=== PATIENT | female | born 1980 | race Asian ===

== ENCOUNTER 2023-04-16 12:07 | Outpatient (AMB) | payer OTHER, SELFPAY ==
--- NOTE | 2023-04-16 12:33 | MHC.PC.OV ---
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 Accompanied by: Self / Same As Patient Allergies No Known Allergies Allergy (Verified 04/16/23 13:05) Medication List - Last Reconciled 04/16/23 by Sandro Faustin MD calcium carbonate (Calcium) 600 mg PO DAILY Tobacco use date assessed: 04/16/23 Dental Screening Did you have a dental visit in the last 12 months?: No Did you have a dental problem in the last 6 months where you did not have access to dental care?: No Was dental information given to patient?: No HPI Establish Care HPI Details Patient comes in today for her annual physical examination and to reestablish care - she was previously seen back in 2019 but has not been back since States that she currently feels okay but reports experiencing on and off dizziness for a while now Reports experiencing severe dizziness a few months ago - based on her description of her symptoms wherein she states that she had to keep her eyes closed as even the slightest movement triggers severe dizziness, it sounded like she had a bout of vertigo then States that she was seen for this somewhere up in [place] and will bring in a copy of her records for us to go over as soon as she can States that she still has on and off but brief episodes of dizziness that seems to occur more often around noon time - states that these tend to last only for a few seconds and would then pass immediately She denies any headaches Denies any chest pains, no SOB No nausea/vomiting, no abdominal pain No change in bowel habits noted Denies any acute urinary symptoms Relates (+) on and off pain in her right elbow and right shoulder; sometimes also has some numbness in her right hand, especially towards the later afternoon or at night 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 Valdivia for founder exam and pap smear but has not seen him or had her mammogram done since she was last here in 2019 [facility] Medical History (Updated 04/16/23 @ 13:41 by Sandro Faustin MD) No pertinent past medical history Surgical History (Updated 04/16/23 @ 13:41 by Sandro Faustin MD) No pertinent past surgical history Family History (Updated 04/16/23 @ 13:42 by Sandro Faustin MD) Mother Diabetes Hypertension Social History Housing: Apartment Patient Tobacco Use Status: Never used Tobacco e-Cigarette/Vaping Use: Never Used service: No Current occupational status: employed Current occupational exposures/hazards: No Cognitive needs: No Hearing needs: No Vision needs: No Questionnaire PHQ-9 Over the last 2 weeks, how often have you been bothered by any of the following problems? 1. Little interest or pleasure in doing things: not at all 2. Feeling down, depressed, or hopeless: not at all 3. Trouble falling or staying asleep, or sleeping too much: not at all 4. Feeling tired or having little energy: not at all 5. Poor appetite or overeating: not at all 6. Feeling bad about yourself - or that you are a failure or have let yourself or your family down: not at all 7. Trouble concentrating on things, such as reading the newspaper or watching television: not at all 8. Moving or speaking so slowly that other people could have noticed. Or the opposite - being so fidgety or restless that you have been moving around a lot more than usual: not at all 9. Thoughts that you would be better off or of hurting yourself in some way: not at all Total score: 0 Depression Screening Interpretation: Negative Depression Screening Done: Yes 48832 - PHQ-9 Billing: Yes Source: Developed by Drs. Constantino Levine, Juana Fisher, Juwan Chappell and colleagues, with an educational baldo from [employer]. Thrive Questionnaire Date Thrive assessed: 04/16/23 I am a: Patient What is your living situation today?: I have a steady place to live Within the past 12 months, did the food you bought not last and you didn't have the money to get more?: Never true Within the past 12 months, did you worry whether your food would run out before you got money to buy more?: Never true Do you have trouble paying for medicines?: No Do you have trouble getting transportation to medical appointments?: No Do you have trouble paying your heating and electricity bill?: No Do you have trouble taking care of your child, family member or friend?: No Do you have trouble with day-to-day activities such as bathing, preparing meals, shopping, managing finances, etc.?: No Are you currently unemployed and looking for a job?: No Are you interested in more education?: No Please select the resources that you would like help with: None Currently or been in a relationship where the following occur: no concerns reported AUDIT C Alcohol Use Questionnaire (AUDIT-C) 1. How often do you have a drink containing alcohol?: Never 3. How often do you have six or more drinks on one occasion?: Never Total Score: 0 Score Reviewed/Action Taken: Yes NATHAN-7 AMB Questionnaire NATHAN-7 Date NATHAN - 7 assessed: 04/16/23 Feeling nervous, anxious, or on edge: 0 = Not at all Not being able to stop or control worryin = Not at all Worrying too much about different things: 0 = Not at all Trouble relaxin = Not at all Being so restless that it is hard to sit still: 0 = Not at all Becoming easily annoyed or irritable: 0 = Not at all Feeling afraid as if something awful might happen: 0 = Not at all Total NATHAN-7 score (0-4 normal; 5-9 mild; 10-14 moderate; 15-21 severe): 0 Source: Developed by Drs. Constantino Levine, Juana Fisher, Juwan Chappell and colleagues, with an educational baldo from [employer]. Review of Systems Const Denies chills, Denies fatigue, Denies fever(s), Denies headache(s) and Denies malaise Eyes Denies blurry vision, Denies change in vision, Denies irritation and Denies itchy eyes ENT Denies dysphagia, Reports dizziness (on and off - see HPI), Denies otalgia, Denies headache(s), Denies nasal congestion, Denies neck pain, Denies odynophagia, Denies sinus pain and Denies sore throat Card Denies chest pain, Denies rapid heart rate, Denies irregular heart rhythm, Denies palpitations and Denies dyspnea Resp Denies chest congestion, Denies cough, Denies dyspnea and Denies wheezing GI Denies abdominal pain, Denies bloating, Denies constipation, Denies dysphagia, Denies heartburn, Denies diarrhea, Denies nausea, Denies odynophagia and Denies vomiting Denies hematuria, Denies urinary frequency, Denies dysuria, Denies urinary incontinence and Denies urinary urgency Musc Denies back pain, Reports arthralgias (right elbow, right shoulder and occasionally right wrist), Denies joint swelling, Denies muscle weakness, Denies neck pain and Reports numbness (on and off in the right hand, more often in late afternoon or at night) Skin/Breast Denies breast pain, Denies breast mass, Denies change in pigmentation, Denies lesions, Denies rash and Denies unusual bruising Neuro Reports dizziness (on and off - see HPI), Denies headache(s), Reports numbness (on and off in the right hand, more often in late afternoon or at night) and Denies paresthesias Psych Denies anxiety and Denies depression Endo Denies fatigue and Denies palpitations Donte/Lymph Denies easy bruising Aller/Immun Denies itchy eyes and Denies wheezing Physical exam (Primary Care) Vital Signs: Last Vital Signs Pulse 73 04/16/23 12:38 BP 100/80 04/16/23 12:38 Pulse Ox 99 04/16/23 12:38 Oxygen Delivery Method Room Air 04/16/23 12:38 BMI result Body Mass Index 20.5 Tobacco/Smoking Status: Tobacco use Status Tobacco use date assessed 04/16/23 04/16/23 12:47 Patient Tobacco Use Status Never used Tobacco 04/16/23 12:47 e-Cigarette/Vaping Use Never Used 04/16/23 12:47 PHQ-9: PHQ-9 Score PHQ-9: Total score 0 04/16/23 13:10 Depression Screening Interpretation: Negative Thrive Assessment: Date of Thrive Assessment Date Thrive assessed 04/16/23 04/16/23 12:47 Currently or been in a relationship where the following occur: no concerns reported Const General: no acute distress, alert and awake Orientation/consciousness: patient oriented x3 HENMT Head: Yes normocephalic and Yes atraumatic Ears: external ears normal, TM's normal bilaterally and EAC's normal General nose exam: No nasal discharge present Face and sinus: Yes normal facial exam and Yes sinuses nontender Teeth and gingiva: dentition normal Throat: Yes posterior oropharynx normal and Yes tonsils normal (no TP congestion) Eyes Eyelids: Yes eyelids normal Conjunctivae: conjunctivae normal Pupils: Equal, round and reactive pupils present EOM: EOMs intact bilaterally Neck Neck: Yes no lymphadenopathy and Yes supple Thyroid: Thyroid normal Resp Auscultation: clear to auscultation bilaterally, no rales and no wheezes Cardio Rate: regular rate Rhythm: regular rhythm Heart sounds: no murmurs GI Palpation (GI): Soft to palpation, nontender and No hepatosplenomegaly present Auscultation: normal bowel sounds General: Yes no CVA tenderness Back/Spine/Pelvis Back: no CVA tenderness Thoracic/Lumbar Spine: thoracic and lumbar spine normal to inspection Skin Lesions: no lesions Rashes: no rashes Neuro General: patient oriented x3, moves all extremities, no focal motor deficits and CN's II-XI intact bilaterally Cranial nerves: Yes Equal, round and reactive pupils present Cognition (Neuro): normal cognition Gait exam (Neuro): Normal gait present Extrem General: Yes no clubbing, cyanosis or edema Right upper extremity: shoulder/upper arm Details: normal to inspection, elbow/forearm Details: tenderness (mild) Location: of the medial epicondyle; no swelling and wrist Details: tenderness (mild) Location: of the volar wrist Assessment and Plan Assessment & Plan (1) Annual physical exam: Code(s): Z00.00 - Encounter for general adult medical examination without abnormal findings Plan: Check labs (2) Dizziness: Code(s): R42 - Dizziness and giddiness Plan: Unknown etiology at this time - may be due to dehydration (considering where she is working at) or vertigo (more unlikely given the brief nature of her recent symptoms) Will wait and see how her labs come out first (3) Medial epicondylitis of right elbow: Code(s): M77.01 - Medial epicondylitis, right elbow Plan: Mild - likely related to what 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 does at 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) If symptoms progress, consider referring either to physical therapy or orthopedics for further management (4) Numbness and tingling in right hand: Code(s): R20.0 - Anesthesia of skin; R20.2 - Paresthesia of skin Plan: May possibly be due to CTS If symptom progress, will consider imaging studies (x-rays) of the wrist as well as EMG & NCV Can also try wearing a wrist splint but she feels that this will impact her work and wants to hold off on this for now (5) Breast cancer screening by mammogram: Code(s): Z12.31 - Encounter for screening mammogram for malignant neoplasm of breast Plan: Will send for screening (annual) mammogram - has not had one done since 2019 (6) Cervical cancer screening: Code(s): Z12.4 - Encounter for screening for malignant neoplasm of cervix Plan: Will also refer back to Dr. Valdivia for her annual founder exam and pap smear Plan Follow up in 4 months or PRN Orders: Orders Comprehensive [place]. Panel Fast Today R42 - Dizziness and giddiness, Z00.00 - Encounter for general adult medical examination without abnormal findings Vitamin B12 and Folate Today E53.8 - Deficiency of other specified B group vitamins, Z00.00 - Encounter for general adult medical examination without abnormal findings Magnesium Today E83.42 - Hypomagnesemia, Z00.00 - Encounter for general adult medical examination without abnormal findings MM tomosynthesis screening BI Today Z12.31 - Encounter for screening mammogram for malignant neoplasm of breast Complete Blood Count Auto Diff Today R42 - Dizziness and giddiness, Z00.00 - Encounter for general adult medical examination without abnormal findings Lipid Panel Today E78.00 - Pure hypercholesterolemia, unspecified, Z00.00 - Encounter for general adult medical examination without abnormal findings TSH reflex Free T4 Today Z00.00 - Encounter for general adult medical examination without abnormal findings UA CC w/rflx Micro + Cult Today R30.0 - Dysuria, Z00.00 - Encounter for general adult medical examination without abnormal findings Vitamin D 25-OH Total Today E55.9 - Vitamin D deficiency, unspecified, Z00.00 - Encounter for general adult medical examination without abnormal findings Referrals [facility] Referral Z12.4 - Encounter for screening for malignant neoplasm of cervix Coding Level of Care Code New Pt Prev Care 40-64y([id number]) Diagnoses Annual physical exam Z00.00 Dizziness R42 Medial epicondylitis of right elbow M77.01 Numbness and tingling in right hand R20.0; R20.2 Breast cancer screening by mammogram Z12.31 Cervical cancer screening Z12.4
[2023-04-16 12:38] VITALS: BP 100/80; PULSE 73; O2SAT 99; BMI 20.5
== END 2023-04-16 13:21 | disposition home or self-care (01) ==
PROVIDERS: PCP Internal Medicine; Visit Provider Internal Medicine
DX: Z00.00 Encounter for general adult medical examination without abnormal findings (principal); R42 Dizziness and giddiness; M77.01 Medial epicondylitis, right elbow; R20.0 Anesthesia of skin; R20.2 Paresthesia of skin; Z12.31 Encounter for screening mammogram for malignant neoplasm of breast; Z12.4 Encounter for screening for malignant neoplasm of cervix
CPT/HCPCS: 99386

== ENCOUNTER 2023-04-19 08:37 | Outpatient (REF) | payer OTHER, SELFPAY ==
[2023-04-19 08:55] LABS: MANUAL DIFF FLAG NO
[2023-04-19 09:22] LABS: Basophils Absolute Auto 0.1 X10*3/uL (0.0-0.2); Basophils Percent Auto 0.9 % (0-2); Eosinophils Absolute Auto 0.1 X10*3/uL (0.0-0.4); Eosinophils Percent Auto 1.4 % (0-4); Hematocrit 41.1 % (37.0-47.0); Hemoglobin 13.1 g/dl (12.0-16.0); Imm Gran Abs Auto 0.01 X10*3/uL (0.00-0.03); Imm Gran Pct Auto 0.2 % (0.0-0.4); Lymphocytes Absolute Auto 1.4 X10*3/uL (1.2-4.9); Lymphocytes Percent Auto 25.4 % (20-40); Mean Corpuscular HGB Conc 31.9 g/dl (31.0-35.0); Mean Corpuscular Hemoglobin 26.8 pg (27.0-33.0); Mean Platelet Volume 8.9 fL (9.4-12.3); Monocytes Absolute Auto 0.5 X10*3/uL (0.1-1.2); Monocytes Percent Auto 8.8 % (2-11); Neutrophils Absolute Auto 3.5 x10*3/uL (2.0-8.3); Neutrophils Percent Auto 63.3 % (45-73); Platelet Count 358 X10*3/uL (160-400); Red Blood Count 4.89 X10*6/uL (4.20-5.50); Red Cell Distribution Width 12.8 % (11.0-16.0); White Blood Count 5.6 X10*3/uL (4.8-10.8)
[2023-04-19 09:32] LABS: Appearance Urine Clear; Color Urine Yellow; Glucose Urine UA Negative (Negative); Leukocyte Esterase Urine Trace (Negative); Nitrite Urine Negative (Negative); PH 6.5 (5.0-9.0); UMIC TRIGGER UACC YES; Urine Blood Negative (Negative); Urine Ketones Negative (Negative); Urine Protein Negative (Neg-Trace)
[2023-04-19 09:42] LABS: Bacteria Urine Trace (None Seen); Hyaline Casts Urine 0-2 /LPF (0-2); RBC Urine 0-2 /HPF (0-2); WBC Urine 0-5 /HPF (0-5)
[2023-04-19 10:29] LABS: Alanine Aminotransferase 11 U/L (0-31); Albumin Level 4.2 g/dL (3.5-5.0); Alkaline Phosphatase 60 U/L (39-117); Anion Gap 13 (12-20); Aspartate Amino Transferase 17 U/L (5-31); Bilirubin Total 0.5 mg/dL (0.0-1.0); Blood Urea Nitrogen 12 mg/dL (9-16); Calcium 9.2 mg/dL (8.4-10.2); Carbon Dioxide 22 mmol/L (22-29); Chloride 108 mmol/L (96-108); Cholesterol 143 mg/dL (<200); Estimated Glomerular Filt Rate > 60; Glucose Fasting 84 mg/dL (60-99); HDL Cholesterol 46 mg/dL (>40); LDL Cholesterol Calculated 89 mg/dL (<100); Magnesium 2.1 mg/dL (1.6-2.6); Sodium 139 mmol/L (135-145); Total Protein 7.6 g/dL (6.5-8.0); Triglycerides 44 mg/dL (<150)
[2023-04-19 10:40] LABS: TSH reflex Free T4 2.69 uIU/mL (0.32-4.0); Vitamin D 25-OH Total 26.9 ng/mL (>30)
[2023-04-19 11:18] LABS: Vitamin B12 778 pg/mL (200-900)
== END 2023-04-19 08:38 | disposition home or self-care (01) ==
LOC: HO.LAB 08:37
PROVIDERS: PCP Internal Medicine; Visit Provider Internal Medicine
DX: Z00.00 Encounter for general adult medical examination without abnormal findings (principal); R42 Dizziness and giddiness; E53.8 Deficiency of other specified B group vitamins; E78.00 Pure hypercholesterolemia, unspecified; E55.9 Vitamin D deficiency, unspecified
CPT/HCPCS: 36415; 80053; 80061; 81001; 82306; 82607; 82746; 83735; 84443; 85025

== ENCOUNTER 2024-03-24 15:48 | Outpatient (AMB) | payer OTHER, SELFPAY ==
[2024-03-24 15:48] VITALS: BP 100/78; PULSE 67; O2SAT 98; BMI 20.3
--- NOTE | 2024-03-24 15:48 | MHC.PC.OV ---
Vital Signs 03/24/24 15:48 Height 5 ft 5 in Weight 122 lb 2 oz BMI 20.3 BP 100/78 Blood Pressure Location Lt brachial Position Sitting Pulse 67 Pulse Source Pulse Oximeter Pulse Oximetry (%) 98 Oxygen Delivery Method Room Air Intake Visit Reasons: annual exam Accompanied by: Spouse Allergies No Known Allergies Allergy (Verified 03/24/24 16:19) Medication List - Last Reconciled 03/24/24 by Sandro Faustin MD calcium carbonate (Calcium 600) 600 mg PO DAILY Tobacco use date assessed: 03/24/24 Dental Screening Dental Screen Date: 03/24/24 Did you have a dental visit in the last 12 months?: No Did you have a dental problem in the last 6 months where you did not have access to dental care?: No Was dental information given to patient?: No HPI annual exam HPI Details Patient comes in today for her annual physical examination States that she currently feels okay but she would sometimes experience on and off episodes of some chest heaviness and mild SOB and feels that her heart may be beating a little faster than usual during these times States that these do not seem to be associated with or triggered by activity or physical exertion and usually last for only a few minutes before spontaneously subsiding She denies any chest pains, dizziness or lightheadedness when these episodes occur She denies any headaches or dizziness Denies any exertional chest pains No nausea/vomiting, no abdominal pain No change in bowel habits noted She denies any acute urinary symptoms She last had her annual mammogram done here at [facility] in 2019 - mammogram was negative She has not seen a computerized mill mill recorder nor had a pap smear done in years [facility] Medical History (Updated 03/25/24 @ 05:53 by Sandro Faustin MD) Vitamin D deficiency No pertinent past medical history Surgical History No pertinent past surgical history Family History Mother Diabetes Hypertension Social History Housing: Apartment Patient Tobacco Use Status: Never used Tobacco e-Cigarette/Vaping Use: Never Used service: No Current occupational status: employed Current occupational exposures/hazards: No Cognitive needs: No Hearing needs: No Vision needs: No Questionnaire PHQ-9 Over the last 2 weeks, how often have you been bothered by any of the following problems? 1. Little interest or pleasure in doing things: not at all 2. Feeling down, depressed, or hopeless: not at all 3. Trouble falling or staying asleep, or sleeping too much: not at all 4. Feeling tired or having little energy: not at all 5. Poor appetite or overeating: not at all 6. Feeling bad about yourself - or that you are a failure or have let yourself or your family down: not at all 7. Trouble concentrating on things, such as reading the newspaper or watching television: not at all 8. Moving or speaking so slowly that other people could have noticed. Or the opposite - being so fidgety or restless that you have been moving around a lot more than usual: not at all 9. Thoughts that you would be better off or of hurting yourself in some way: not at all Total score: 0 Depression Screening Interpretation: Negative Depression Screening Done: Yes 79417 - PHQ-9 Billing: Yes Source: Developed by Drs. Constantino Levine, Juana Fisher, Juwan Chappell and colleagues, with an educational baldo from [employer]). Thrive Questionnaire Date Thrive assessed: 03/24/24 I am a: Patient What is your living situation today?: I have a steady place to live Within the past 12 months, did the food you bought not last and you didn't have the money to get more?: Never true Within the past 12 months, did you worry whether your food would run out before you got money to buy more?: Never true Do you have trouble paying for medicines?: No Do you have trouble getting transportation to medical appointments?: No Do you have trouble paying your heating and electricity bill?: No Do you have trouble taking care of your child, family member or friend?: No Do you have trouble with day-to-day activities such as bathing, preparing meals, shopping, managing finances, etc.?: No Are you currently unemployed and looking for a job?: No Are you interested in more education?: No Please select the resources that you would like help with: None Currently or been in a relationship where the following occur: No concerns reported THRIVE Score: 0 AUDIT C Alcohol Use Questionnaire (AUDIT-C) 1. How often do you have a drink containing alcohol?: Never 3. How often do you have six or more drinks on one occasion?: Never Total Score: 0 Score Reviewed/Action Taken: Yes NATHAN-7 AMB Questionnaire NATHAN-7 Date NATHAN - 7 assessed: 03/24/24 Feeling nervous, anxious, or on edge: 0 = Not at all Not being able to stop or control worryin = Not at all Worrying too much about different things: 0 = Not at all Trouble relaxin = Not at all Being so restless that it is hard to sit still: 0 = Not at all Becoming easily annoyed or irritable: 0 = Not at all Feeling afraid as if something awful might happen: 0 = Not at all Total NATHAN-7 score (0-4 normal; 5-9 mild; 10-14 moderate; 15-21 severe): 0 Source: Developed by Drs. Constantino Levine, Juana Fisher, Juwan Chappell and colleagues, with an educational baldo from [employer] ([employer]). Review of Systems Const Denies chills, Denies fatigue, Denies fever(s), Denies headache(s) and Denies malaise Eyes Denies blurry vision, Denies change in vision, Denies irritation and Denies itchy eyes ENT Denies dysphagia, Denies dizziness, Denies otalgia, Denies headache(s), Denies nasal congestion, Denies neck pain, Denies odynophagia, Denies sinus pain and Denies sore throat Card Denies chest pain (but reports (+) occasional chest discomfort - see HPI), Denies chest pain with activity, Reports rapid heart rate (at times - see HPI), Denies irregular heart rhythm, Denies lightheadedness, Denies palpitations, Reports dyspnea (at times - see HPI) and Denies dyspnea on exertion Resp Denies chest congestion, Denies cough, Reports dyspnea (at times - see HPI), Denies dyspnea on exertion and Denies wheezing GI Denies abdominal pain, Denies bloating, Denies constipation, Denies dysphagia, Denies heartburn, Denies diarrhea, Denies nausea, Denies odynophagia and Denies vomiting Denies hematuria, Denies urinary frequency, Denies dysuria, Denies urinary incontinence and Denies urinary urgency Musc Denies back pain, Denies arthralgias, Denies joint swelling, Denies muscle weakness and Denies neck pain Skin/Breast Denies breast pain, Denies breast mass, Denies change in pigmentation, Denies lesions, Denies rash and Denies unusual bruising Neuro Denies dizziness, Denies headache(s) and Denies paresthesias Psych Denies anxiety and Denies depression Endo Denies fatigue and Denies palpitations Donte/Lymph Denies easy bruising Aller/Immun Denies itchy eyes and Denies wheezing Physical exam (Primary Care) Vital Signs: Last Vital Signs Pulse 67 03/24/24 15:48 BP 100/78 03/24/24 15:48 Pulse Ox 98 03/24/24 15:48 Oxygen Delivery Method Room Air 03/24/24 15:48 BMI result Body Mass Index 20.3 Tobacco/Smoking Status: Tobacco use Status Tobacco use date assessed 03/24/24 03/24/24 15:51 Patient Tobacco Use Status Never used Tobacco 03/24/24 15:51 e-Cigarette/Vaping Use Never Used 03/24/24 15:51 PHQ-9: PHQ-9 Score PHQ-9: Total score 0 03/24/24 16:42 Depression Screening Interpretation: Negative Thrive Assessment: Date of Thrive Assessment Date Thrive assessed 03/24/24 03/24/24 15:51 Currently or been in a relationship where the following occur: No concerns reported Const General: no acute distress, alert and awake Orientation/consciousness: patient oriented x3 HENMT Head: Yes normocephalic and Yes atraumatic Ears: external ears normal, TM's normal bilaterally and EAC's normal General nose exam: No nasal discharge present Face and sinus: Yes normal facial exam and Yes sinuses nontender Teeth and gingiva: dentition normal Throat: Yes posterior oropharynx normal and Yes tonsils normal (no TP congestion) Eyes Eyelids: Yes eyelids normal Conjunctivae: conjunctivae normal Pupils: Equal, round and reactive pupils present EOM: EOMs intact bilaterally Neck Neck: Yes no lymphadenopathy and Yes supple Thyroid: Thyroid normal Resp Auscultation: clear to auscultation bilaterally, no rales and no wheezes Cardio Rate: regular rate Rhythm: regular rhythm Heart sounds: no murmurs GI Palpation (GI): Soft to palpation, nontender and No hepatosplenomegaly present Auscultation: normal bowel sounds General: Yes no CVA tenderness Back/Spine/Pelvis Back: no CVA tenderness Thoracic/Lumbar Spine: thoracic and lumbar spine normal to inspection Skin Lesions: no lesions Rashes: no rashes Neuro General: patient oriented x3, moves all extremities, no focal motor deficits and CN's II-XI intact bilaterally Cranial nerves: Yes Equal, round and reactive pupils present Cognition (Neuro): normal cognition Gait exam (Neuro): Normal gait present Extrem General: Yes no clubbing, cyanosis or edema Assessment and Plan Assessment & Plan (1) Annual physical exam: Code(s): Z00.00 - Encounter for general adult medical examination without abnormal findings Plan: Check labs Patient also requested to be checked for diabetes as she has a strong family history for this (2) Dyspnea: Code(s): R06.00 - Dyspnea, unspecified Qualifiers: Dyspnea type: unspecified Qualified Code(s): R06.00 - Dyspnea, unspecified Plan: Patient reports experiencing on and off episodes of some chest heaviness and mild SOB and feels that her heart may be beating a little faster than usual during these times Will send her for chest x-rays and 12-lead EKG for further evaluation She may also need an echocardiogram at some point, especially if her chest x-rays and EKG do not help to explain away her symptoms (3) Vitamin D deficiency: Code(s): E55.9 - Vitamin D deficiency, unspecified Plan: She is advised that her Vitamin D level was low when it was rechecked last year Will start her on Vitamin D3 2000 units QD (4) Breast cancer screening by mammogram: Code(s): Z12.31 - Encounter for screening mammogram for malignant neoplasm of breast Plan: Will send her for annual mammography - last done in 2019 (5) Cervical cancer screening: Code(s): Z12.4 - Encounter for screening for malignant neoplasm of cervix Plan: Will refer her to the [facility] here at [facility] for her annual pap smear and gynecology exam (6) Colon cancer screening: Code(s): Z12.11 - Encounter for screening for malignant neoplasm of colon Plan: Will refer her for screening colonoscopy - this will be her index screen Plan To return in 1 year for her next annual physical examination, unless her tests reveal any abnormal results, especially those to do with her cardiac symptoms Orders: Orders Comprehensive [place]. Panel Fast 03/24/24 E78.00 - Pure hypercholesterolemia, unspecified, Z00.00 - Encounter for general adult medical examination without abnormal findings TSH reflex Free T4 03/24/24 E78.00 - Pure hypercholesterolemia, unspecified, Z00.00 - Encounter for general adult medical examination without abnormal findings UA CC w/rflx Micro + Cult 03/24/24 R30.0 - Dysuria, Z00.00 - Encounter for general adult medical examination without abnormal findings ECG 12 lead EKG 03/24/24 I49.9 - Cardiac arrhythmia, unspecified MM tomosynthesis screening BI 03/24/24 Z12.31 - Encounter for screening mammogram for malignant neoplasm of breast Complete Blood Count Auto Diff 03/24/24 D64.9 - Anemia, unspecified, Z00.00 - Encounter for general adult medical examination without abnormal findings Lipid Panel 03/24/24 E78.00 - Pure hypercholesterolemia, unspecified, Z00.00 - Encounter for general adult medical examination without abnormal findings Vitamin D 25-OH Total 03/24/24 E55.9 - Vitamin D deficiency, unspecified, Z00.00 - Encounter for general adult medical examination without abnormal findings Hemoglobin A1c 03/24/24 E11.9 - Type 2 diabetes mellitus without complications, Z00.00 - Encounter for general adult medical examination without abnormal findings XR chest 2V 03/24/24 R06.00 - Dyspnea, unspecified Referrals Gastroenterology Referral Z12.11 - Encounter for screening for malignant neoplasm of colon INPATIENT NURSING AIDE Referral Z12.4 - Encounter for screening for malignant neoplasm of cervix Medications: New cholecalciferol (vitamin D3) 50 mcg PO DAILY 90 days 90 caps 3RF E55.9 - Vitamin D deficiency, unspecified Coding Level of Care Code Est Pt Prev Care 40-64y(74322) Diagnoses Annual physical exam Z00. Dyspnea, unspecified type R06.00 Dyspnea type: unspecified Vitamin D deficiency E55.9 Breast cancer screening by mammogram Z07.07 Cervical cancer screening Z12.4 Colon cancer screening Z12.11
== END 2024-03-24 16:21 | disposition home or self-care (01) ==
LOC: HO.HMCH 15:48
PROVIDERS: PCP Internal Medicine; Visit Provider Internal Medicine
DX: Z00.00 Encounter for general adult medical examination without abnormal findings (principal); R06.00 Dyspnea, unspecified; E55.9 Vitamin D deficiency, unspecified; Z12.31 Encounter for screening mammogram for malignant neoplasm of breast; Z12.4 Encounter for screening for malignant neoplasm of cervix; Z12.11 Encounter for screening for malignant neoplasm of colon

== ENCOUNTER → 2024-03-24 15:48 | Outpatient (BNVA) | payer OTHER, SELFPAY | LOC: CF 03-25 07:49 | PROVIDERS: PCP Internal Medicine; Visit Provider Internal Medicine | DX: Z00.00 Encounter for general adult medical examination without abnormal findings (principal); R06.00 Dyspnea, unspecified; E55.9 Vitamin D deficiency, unspecified | CPT/HCPCS: 99396 ==

== ENCOUNTER 2024-03-25 07:50 | Outpatient (REF) | payer OTHER, SELFPAY ==
--- NOTE | ~2024-03-25 | XR_ITS ---
EXAMINATION: XR CHEST CLINICAL INFORMATION: R06.00 - Dyspnea, unspecified COMPARISON: None available. TECHNIQUE: 2 views of the chest were obtained. FINDINGS: The cardiac, hilar, and mediastinal contours are normal. Lungs appear clear bilaterally. There are no effusions or pneumothoraces. There is no osseous abnormality. No soft tissue abnormality. XR/XR chest 2V IMPRESSION: Normal chest. Electronically signed by: Blake Rodriguez MD 06/03/2024 02:05 PM [facility]ANT[facility]
--- NOTE | 2024-03-25 08:08 | ECG_ITS ---
Test Reason : Cardiac Arrythmia I49.9 Blood Pressure : / mmHG Vent. Rate : 052 BPM Atrial Rate : 052 BPM P-R Int : 186 ms QRS Dur : 074 ms QT Int : 438 ms P-R-T Axes : 068 048 033 degrees QTc Int : 407 ms Sinus bradycardia Otherwise normal ECG No previous ECGs available Referred By: Sandro Faustin Electronically Signed By:JINA DICKSON
[2024-03-25 08:30] LABS: Basophils Percent Auto 0.7 % (0-2); Eosinophils Absolute Auto 0.1 X10*3/uL (0.0-0.4); Hematocrit 42.6 % (37.0-47.0); Hemoglobin 13.8 g/dl (12.0-16.0); Imm Gran Abs Auto 0.02 X10*3/uL (0.00-0.03); Imm Gran Pct Auto 0.5 % (0.0-0.4); Lymphocytes Absolute Auto 1.3 X10*3/uL (1.2-4.9); Lymphocytes Percent Auto 31.1 % (20-40); MANUAL DIFF FLAG SCAN; Mean Corpuscular HGB Conc 32.4 g/dl (31.0-35.0); Mean Corpuscular Volume 86.4 fL (80.0-98.0); Monocytes Absolute Auto 0.3 X10*3/uL (0.1-1.2); Monocytes Percent Auto 6.4 % (2-11); Neutrophils Absolute Auto 2.4 x10*3/uL (2.0-8.3); Neutrophils Percent Auto 59.3 % (45-73); PLT CLUMP 1; Red Blood Count 4.93 X10*6/uL (4.20-5.50); Red Cell Distribution Width 12.8 % (11.0-16.0); SCAN SMEAR FLAG 1
[2024-03-25 08:34] LABS: Estimated Average Glucose 97 mg/dL
[2024-03-25 09:06] LABS: Alanine Aminotransferase 16 U/L (0-31); Albumin Level 4.2 g/dL (3.5-5.0); Alkaline Phosphatase 64 U/L (39-117); Anion Gap 11 (12-20); Aspartate Amino Transferase 19 U/L (5-31); Bilirubin Total 0.3 mg/dL (0.0-1.0); Blood Urea Nitrogen 16 mg/dL (9-16); Calcium 8.9 mg/dL (8.4-10.2); Carbon Dioxide 24 mmol/L (22-29); Chloride 110 mmol/L (96-108); Cholesterol 140 mg/dL (<200); Estimated Glomerular Filt Rate > 60; Glucose Fasting 92 mg/dL (60-99); HDL Cholesterol 42 mg/dL (>40); LDL Cholesterol Calculated 86 mg/dL (<100); Potassium 4.6 mmol/L (3.3-5.1); Sodium 140 mmol/L (135-145); Total Protein 7.9 g/dL (6.5-8.0); Triglycerides 64 mg/dL (<150); White Blood Count 4.1 X10*3/uL (4.8-10.8)
[2024-03-25 09:07] LABS: Mean Platelet Volume 10.8 fL (9.4-12.3); Platelet Count 254 X10*3/uL (160-400); SLIDE REVIEW VERIFIED
[2024-03-25 09:28] LABS: Vitamin D 25-OH Total 30.1 ng/mL (>30)
[2024-03-25 09:51] LABS: Appearance Urine Clear; Color Urine Yellow; Glucose Urine UA Negative (Negative); Leukocyte Esterase Urine Trace (Negative); Nitrite Urine Negative (Negative); PH 6.5 (5.0-9.0); UMIC TRIGGER UACC YES; Urine Blood Large (3+) (Negative); Urine Ketones Negative (Negative); Urine Protein Negative (Neg-Trace)
[2024-03-25 09:56] LABS: Bacteria Urine None Seen (None Seen); Hyaline Casts Urine 0-2 /LPF (0-2); WBC Urine 0-5 /HPF (0-5)
== END 2024-03-25 07:51 | disposition home or self-care (01) ==
LOC: HO.XRAY 07:50
PROVIDERS: PCP Internal Medicine; Visit Provider Internal Medicine
DX: Z00.00 Encounter for general adult medical examination without abnormal findings (principal); E78.00 Pure hypercholesterolemia, unspecified; D64.9 Anemia, unspecified; E55.9 Vitamin D deficiency, unspecified; E11.9 Type 2 diabetes mellitus without complications; I49.9 Cardiac arrhythmia, unspecified; R06.00 Dyspnea, unspecified; R30.0 Dysuria
CPT/HCPCS: 36415; 71046; 80053; 80061; 81001; 82306; 83036; 84443; 85025; 93005

== ENCOUNTER → 2024-03-25 08:20 | Outpatient (BNV) | payer OTHER, SELFPAY | PROVIDERS: PCP Internal Medicine; Visit Provider Radiology Diagnostic Radiology | DX: R06.00 Dyspnea, unspecified (principal) | CPT/HCPCS: 71046 ==

== ENCOUNTER 2024-05-12 11:31 | Outpatient (REF) | payer OTHER, SELFPAY ==
--- NOTE | ~2024-05-12 | MM_ITS ---
EXAMINATION: MM SCREENING DIGITAL BREAST TOMOSYNTHESIS, BILATERAL CLINICAL INFORMATION: Screening. Asymptomatic. COMPARISON: Mammography: Comparison is made with available priors TECHNIQUE: Digital breast mammography with tomosynthesis is performed in both the craniocaudal and mediolateral oblique views along with computer-aided detection (CAD). FINDINGS: The breasts are extremely dense, which lowers the sensitivity of mammography (ACR BI-RADS breast composition Category d). There are no significant masses, abnormal calcifications, or other abnormalities. MM/MM tomosynthesis screening BI IMPRESSION: No mammographic evidence of malignancy. ASSESSMENT: BI-RADS BI-RADS 1 - Negative RECOMMENDATION: Routine annual mammography screening. 1 year F/U This examination should not preclude the clinical evaluation of a suspicious palpable abnormality. This patient's information was entered into a reminder system with a target due date for their next mammogram. Electronically signed by: Liana Pearce DO 05/20/2024 01:16 PM [facility]
== END 2024-05-12 11:32 | disposition home or self-care (01) ==
LOC: HO.MAMMO 11:31
PROVIDERS: PCP Internal Medicine; Visit Provider Internal Medicine
DX: Z12.31 Encounter for screening mammogram for malignant neoplasm of breast (principal)
CPT/HCPCS: 77063; 77067

== ENCOUNTER → 2024-05-12 12:15 | Outpatient (BNV) | payer OTHER, SELFPAY | PROVIDERS: PCP Internal Medicine; Visit Provider Internal Medicine | DX: Z12.31 Encounter for screening mammogram for malignant neoplasm of breast (principal) | CPT/HCPCS: 77063; 77067 ==

== ENCOUNTER 2025-01-14 08:04 | Outpatient (AMB) | payer OTHER, SELFPAY ==
[2025-01-14 08:07] VITALS: BP 116/84; PULSE 65; TEMP 36.7; O2SAT 98; BMI 20.8
--- NOTE | 2025-01-14 08:07 | AM.OFFWIN_ITS ---
Intake Vital Signs 01/14/25 08:07 Height 5 ft 5 in Weight 125 lb BMI 20.8 BP 116/84 Blood Pressure Location Lt brachial Position Sitting Pulse 65 Pulse Source Pulse Oximeter Temp 98.0 F Temp Source Oral Pulse Oximetry (%) 98 Oxygen Delivery Method Room Air Intake Visit Reasons: EP Nervous, stomach ache Intake Note: presents with stomach pain, diarrhea for about a week. Also c/o chest tightness and cough with deep breath for years, denies any night sweats Patient Tobacco Use Status: Former Tobacco user Allergies No Known Allergies Allergy (Verified 01/14/25 08:11) Do you need a note to return to daycare/school/sports/work: No HPI HPI Comments History of Present Illness Details 44 y/o Female patient who presents to [facility] walk [facility] clinic with c/o Dry cough and chest tightness. Pt reports that symptoms have been on/off for few years now. Reports occasional SOB but no wheezing. Denies Fevers or Chills. Pt also c/o Generalized Abdominal pain on/off for 2 days now, Pain associated with Diarrhea. Denies Nausea or vomiting. Pain is mostly located at Right Lower Abdominal Quadrant. Denies Blood in Stool. She does have a GI appointment for Colonoscopy in 01/19. She is sexually active with - Had B/L Tubal Ligation. Patient has not used any OTC remedies for her symptoms. Patient was accompanied by a Family member who assisted with Language Translation today - declined Video/Phone supervisor opening and picking. [facility] Medical History (Updated 01/14/25 @ 09:04 by Judy Rivera NP) Abdominal pain, right lower quadrant Cough Vitamin D deficiency No pertinent past medical history Surgical History No pertinent past surgical history Family History Mother Diabetes Hypertension Social History Housing: Apartment Patient Tobacco Use Status: Former Tobacco user e-Cigarette/Vaping Use: Never Used service: No Current occupational status: employed Current occupational exposures/hazards: No Cognitive needs: No Hearing needs: No Vision needs: No Review of Systems Const All systems reviewed & are unremarkable except as noted in HPI and below Physical Exam Vital Signs: Last Vital Signs Temp 98.0 F 01/14/25 08:07 Pulse 65 01/14/25 08:07 BP 116/84 01/14/25 08:07 Pulse Ox 98 01/14/25 08:07 Oxygen Delivery Method Room Air 01/14/25 08:07 BMI result Body Mass Index 20.8 Const General: no acute distress Nutritional Appearance: well nourished Orientation/consciousness: patient oriented x3 HEENT Head: Yes normocephalic Ears: external ears normal and TM abnormal with fluid behind the TM bilateral General nose exam: Abnormal mucous membranes and turbinates present erythematous Face and sinus: Yes sinuses nontender Mouth: moist mucous membranes Throat: Yes uvula midline Resp Effort & Inspection: normal respiratory effort Auscultation: clear to auscultation bilaterally, no crackles, no rales, no rhonchi and no wheezes Cardio Heart sounds: S1 normal heart sound present and S2 normal heart sound present Neuro General: patient oriented x3, gait normal and moves all extremities Psych Speech and movement: Normal speech and movement present Assessment & Plan Assessment & Plan (1) Cough: Code(s): R05.9 - Cough, unspecified Qualifiers: Cough type: chronic Qualified Code(s): R05.3 - Chronic cough Plan: DDx's: Cough vs URI vs Allergic rhinitis. Will Treat with Cough medicine plus Zrytec. (2) Abdominal pain, right lower quadrant: Code(s): R10.31 - Right lower quadrant pain Plan: DDx's: GERD vs Gastritis vs Diarrhea vs Ovarian cyst/torsion vs BV Advised to f/u with trim sawyer for Pelvic U/S due to the location of pain. She does have an appointment with GI for Colonoscopy 01/19 Lifestyle changes; Avoid Oily and spicy foods. Hydrate well Will treat the diarrhea. Medications: New loperamide (Imodium A-D) administer after each loose stool until symptoms controlled; do not exceed 8 mg per 24 hrs 2 mg PO Q4H PRN 20 caps 0RF loose stool R10.31 - Right lower quadrant pain cetirizine (Zyrtec) 10 mg PO DAILY 20 tabs 0RF R05.3 - Chronic cough benzonatate 200 mg (2 x 100 mg) PO BID 60 caps 0RF R05.3 - Chronic cough Coding Level of Care Code Est Pt Level 4 (03659) Diagnoses Chronic cough R05.3 Cough type: chronic Abdominal pain, right lower quadrant R10.31 Time Spent (min) 20
== END 2025-01-14 09:24 | disposition home or self-care (01) ==
PROVIDERS: PCP Internal Medicine; Visit Provider Nurse Practitioner Family
DX: R05.3 Chronic cough (principal); R10.31 Right lower quadrant pain

== ENCOUNTER → 2025-01-14 08:04 | Outpatient (BNVA) | payer OTHER, SELFPAY | PROVIDERS: PCP Internal Medicine; Visit Provider Nurse Practitioner Family | DX: R05.3 Chronic cough (principal); R10.31 Right lower quadrant pain | CPT/HCPCS: 99212 ==

== ENCOUNTER 2025-01-19 12:43 | Outpatient (AMB) | payer OTHER, SELFPAY ==
--- NOTE | 2025-01-19 12:58 | MHC.OFFVIS ---
Vital Signs 01/19/25 12:59 Height 5 ft 5 in Weight 125 lb BMI 20.8 BP 118/70 Blood Pressure Location Lt brachial Position Sitting Pulse 66 Pulse Oximetry (%) 99 Oxygen Delivery Method Room Air Intake Visit Reasons: Colonoscopy Screening Intake Note: Patient new consult for pre Colonoscopy screening. Patient cc: Geographic Information Systems Engineer Required: Yes Geographic Information Systems Engineer Name: Curly [id number] Allergies No Known Allergies Allergy (Verified 01/19/25 12:57) HPI HPI Colonoscopy Screening: Details: 44 year old? female with past medical history of cardiac arrhythmia and no other past medical history is here today for pre colonoscopy screening.? Patient was sent to us by her PCP.? This is her first colonoscopy screening.? Patient denies any gastrointestinal symptoms in the past or at present.? Denies any personal or family history of gastrointestinal disease, colon polyps, or CRC.? Denies history of difficulty with sedation or anesthesia in the past.? Negative for history of sleep apnea.? Denies any history of cardiac, renal, pulmonary, or hepatic disease.?? No history of infectious? diseases like hepatitis A, B, C, HIV or tuberculosis.? Patient is not on any anticoagulation. Long discussion with patient and patient would like to do Cologuard instead going for colonoscopy [facility] Medical History (Updated 01/14/25 @ 09:04 by Judy Rivera NP) Abdominal pain, right lower quadrant Cough Vitamin D deficiency No pertinent past medical history Surgical History No pertinent past surgical history Family History Mother Diabetes Hypertension Social History Housing: Apartment Patient Tobacco Use Status: Former Tobacco user e-Cigarette/Vaping Use: Never Used service: No Current occupational status: employed Current occupational exposures/hazards: No Cognitive needs: No Hearing needs: No Vision needs: No Review of Systems Const Denies weight gain and Denies weight loss ENT Reports no additional complaints, Denies dysphagia and Denies odynophagia Card Reports no additional complaints Resp Reports no additional complaints GI Denies abdominal pain, Denies belching, Denies melena, Denies bloating, Denies change in bowel habits, Denies dysphagia, Denies excessive flatus, Denies dyspepsia, Denies heartburn, Denies diarrhea, Denies loose stools, Denies nausea, Denies odynophagia and Denies vomiting Musc Reports no additional complaints Neuro Reports no additional complaints Psych Reports no additional complaints Endo Reports no additional complaints Physical Exam Vital Signs: Last Vital Signs Pulse 66 01/19/25 12:59 BP 118/70 01/19/25 12:59 Pulse Ox 99 01/19/25 12:59 Oxygen Delivery Method Room Air 01/19/25 12:59 BMI result Body Mass Index 20.8 Const General: healthy appearing, no acute distress and well developed Nutritional Appearance: well nourished Orientation/consciousness: patient oriented x3 Resp Effort & Inspection: normal respiratory effort, able to speak in complete sentences, no tracheal deviation and symmetric chest movement Auscultation: clear to auscultation bilaterally Cardio Rate: regular rate GI Inspection: Yes normal to inspection and No distended Palpation (GI): Soft to palpation, not firm, nontender and No hepatosplenomegaly present Auscultation: normal bowel sounds General: Yes no CVA tenderness Back/Spine/Pelvis Back: no CVA tenderness Skin General skin exam: elasticity normal, turgor normal and dry skin Neuro General: patient oriented x3 Psych Appearance: grossly normal Mental Status: mental status grossly normal Assessment & Plan Assessment & Plan (1) Colon cancer screening: Code(s): Z12.11 - Encounter for screening for malignant neoplasm of colon Category: Medical Plan Patient would like to do Cologuard 1st. Discussed with patient that if she will have positive Cologuard she will need to have a colonoscopy. Patient will follow-up with us as needed. Currently she is not experiencing any GI concerning symptoms. Patient is agreeable to current plan of care and verbalizes understanding of instructions. She was given the opportunity to ask questions and all questions answered. Thank you for allowing me to participate in her care Orders: Orders AMB Cologuard Today Z12.11 - Encounter for screening for malignant neoplasm of colon Coding Level of Care Code New Pt Level 3 (68941) Diagnoses Colon cancer screening Z12.11 Time Spent (min) 40 Comment 30 minutes spent with patient and additional 10 minutes spent reviewing her records
[2025-01-19 12:59] VITALS: BP 118/70; PULSE 66; O2SAT 99; BMI 20.8
--- OUTSIDE RECORDS SUMMARY | 2025-01-19 13:56 | XMS_ITS | Clinical Summary ---
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 Name Role Phone Unavailable Primary Care Provider Unavailabl e Allergies No known active allergies Medications No known medications Active Problems No known active problems Encounters Date Type Department Care Team Description 01/12/2025 10:30 AM EDT Office Visit [facility] [address] [place] [address] Geoff Rodarte DMD 12/11/2024 9:00 AM EDT Office Visit [facility] [address] [place] [address] Caro Carias Dental caries (Primary Dx); Gingivitis; Gingival bleeding; Impacted third molar tooth from Last 3 Months Social History Tobacco Use Types Packs/Day Years Used Date Smoking Tobacco: Never Smokeless Tobacco: Never Tobacco Cessation:Counseling Given: Not Answered Comments Unknown Sex and Gender Information Value Date Recorded Sex Assigned at Female 02/10/2024 2:19 PM EDT Legal Sex Female 10:29 AM EST Gender Identity Female 02/10/2024 2:19 PM EDT Sexual Orientation Straight 02/10/2024 2: 19 PM EDT Last Filed Vital Signs Vital Sign Reading Time Taken Comments Blood Pressure 122/80 01/12/2025 10:39 AM EDT Pulse - - Temperature - - Respiratory Rate - - Oxygen Saturation - - Inhaled Oxygen Concentration - - Weight - - Height - - Body Mass Index - - Plan of Treatment Health Maintenance Due Date Last Done Comments CT Colonography 1978 Colonoscopy 1978 Colorectal Cancer Screening 1978 Depression Screening 1978 FIT DNA/Cologuard 1978 FIT 1978 FOBT 1978 HIV Screening 1978 SDOH Screening 1978 Sigmoidoscopy 1978 Disability Screening 1978 Alcohol/Substance Use Screening 1990 Family Planning (PISQ) 1993 Hepatitis C Screening 1996 DTaP/Tdap/Td Vaccines (1 - Tdap) 1997 Hepatitis B Vaccines (1 of 3 - 19+ 3-dose series) 1997 Pap Smear 1999 Cervical Cancer Screening 2008 HPV/Cotest 2008 Mammogram 2018 COVID-19 Vaccine (4 - 2023-2 5 season) 2024 10/29/2021, 12/09/2020, 11/18/2020 Influenza Vaccine (#1) 2025 Dental X-Ray: Bitewings 05/20/2025 05/19/20, 12/24/2023 Dental Oral Exam 06/13/2025 12/11/2024 Dental Prophylaxis 06/13/2025 12/11/2024, 05/19/2024 Tobacco Screening 01/12/2026 01/12/2025 Dental X-Ray: Full Mouth 05/20/2027 05/19/2024 Zoster Vaccines (1 of 2) 2028 RSV Patients and Patients Aged 60 years or older (1 - 1-dose 75+ series) 2053 HIB Vaccines Aged Out No longer eligi ble based on patient's age to complete this topic HPV Vaccines Aged Out No longer eligi ble based on patient's age to complete this topic Hepatitis A Vaccines Aged Out No long er eligible based on patient's age to complete this topic IPV Vaccines Aged Out No longer eligi ble based on patient's age to complete this topic Meningococcal B Vaccine Aged Out No l onger eligible based on patient's age to complete this topic Meningococcal Vaccine Aged Out No valentino terrance eligible based on patient's age to complete this topic Pneumococcal Vaccine: Pediatrics (0 to 5 Years) and At-Risk Patients (6 to 49) Years Aged Out No longer eligible b ased on patient's age to complete this topic RSV under 20 months Aged Out No longe r eligible based on patient's age to complete this topic Rotavirus Vaccines Aged Out No longer eligible based on patient's age to complete this topic Procedures Procedure Name Priority Date/Time Associated Diagnosis Comments CASE PRESENTATION, DETAILED AND EXTENSIVE TREATMENT PLANNING Routine 01/12/2025 10:30 AM EDT 12 DO AMALGAM - 2 SURF, PRIMARY OR PERMANENT Routine 01/12/2025 10:30 AM EDT PERIODIC ORAL EVALUATION - ESTABLISHED PATIENT Routine 12/11/2024 9:00 AM EDT CASE PRESENTATION, DETAILED AND EXTENSIVE TREATMENT PLANNING Routine 12/11/2024 9:00 AM EDT Dental caries Gingivitis Gingival bleeding ORAL HYGIENE INSTRUCTIONS Routine 12/11/2024 9:00 AM EDT Dental caries Gingivitis Gingival bleeding PROPHYLAXIS - ADULT Routine 12/11/2024 9 :00 AM EDT Gingivitis Gingival bleeding 28 EXTRACTION Routine 12/11/2024 12:00 AM EDT INTRAORAL - COMPLETE SERIES OF RADIOGRAPHIC IMAGES Routine 05/19/2024 10:00 AM EST from Last 3 Months or Most Recently Relevant to Health Maintenance Insurance [facility] MEDICAID LIMITED ADULT DENTAL - HSN FULL (MEDICAID)
== END 2025-01-19 16:38 | disposition home or self-care (01) ==
LOC: HO.HGI 12:44
PROVIDERS: PCP Internal Medicine; Visit Provider Nurse Practitioner Family
DX: Z01.818 Encounter for other preprocedural examination (principal); Z12.11 Encounter for screening for malignant neoplasm of colon
CPT/HCPCS: 99203

== ENCOUNTER → 2025-01-19 12:43 | Outpatient (BNVA) | payer OTHER, SELFPAY | PROVIDERS: PCP Internal Medicine; Visit Provider Nurse Practitioner Family | DX: Z12.11 Encounter for screening for malignant neoplasm of colon (principal) | CPT/HCPCS: 99202 ==

== ENCOUNTER 2025-04-14 08:22 | Outpatient (REF) | payer OTHER, SELFPAY ==
[2025-04-14 08:49] LABS: MANUAL DIFF FLAG NO
[2025-04-14 08:59] LABS: Hematocrit 42.4 % (37.0-47.0); Hemoglobin 14.2 g/dl (12.0-16.0); Imm Gran Abs Auto 0.02 X10*3/uL (0.00-0.03); Imm Gran Pct Auto 0.3 % (0.0-0.4); Lymphocytes Absolute Auto 1.1 X10*3/uL (1.2-4.9); Mean Corpuscular HGB Conc 33.5 g/dl (31.0-35.0); Mean Corpuscular Hemoglobin 29.4 pg (27.0-33.0); Mean Corpuscular Volume 87.8 fL (80.0-98.0); NRBC Abs Auto 0.000 X10*3/uL (0.0-0.012); NRBC Pct Auto 0.0 /100WBC (0.0-0.2); Platelet Count 387 X10*3/uL (160-400); Red Blood Count 4.83 X10*6/uL (4.20-5.50); White Blood Count 6.9 X10*3/uL (4.8-10.8)
[2025-04-14 09:08] LABS: Appearance Urine Clear; Glucose Urine UA Negative (Negative); PH 6.0 (5.0-9.0); Specific Gravity - Urine 1.015 (1.005-1.025)
[2025-04-14 09:51] LABS: Alanine Aminotransferase 19 U/L (0-31); Albumin Level 4.5 g/dL (3.5-5.0); Alkaline Phosphatase 69 U/L (39-117); Anion Gap 9 (12-20); Aspartate Amino Transferase 21 U/L (5-31); Blood Urea Nitrogen 15 mg/dL (9-16); Calcium 8.9 mg/dL (8.4-10.2); Carbon Dioxide 25 mmol/L (22-29); Chloride 109 mmol/L (96-108); Cholesterol 162 mg/dL (<200); Estimated Glomerular Filt Rate > 60; HDL Cholesterol 51 mg/dL (>40); Potassium 4.1 mmol/L (3.3-5.1); Sodium 139 mmol/L (135-145); Total Protein 7.6 g/dL (6.5-8.0); Triglycerides 46 mg/dL (<150)
== END 2025-04-14 08:23 | disposition home or self-care (01) ==
LOC: HO.LAB 08:22
PROVIDERS: PCP Internal Medicine; Visit Provider Internal Medicine
DX: Z00.00 Encounter for general adult medical examination without abnormal findings (principal); D64.9 Anemia, unspecified; E78.00 Pure hypercholesterolemia, unspecified; E55.9 Vitamin D deficiency, unspecified; R73.9 Hyperglycemia, unspecified; R30.0 Dysuria
CPT/HCPCS: 36415; 80053; 80061; 81003; 82306; 83036; 84443; 85025

== ENCOUNTER 2025-04-20 15:51 | Outpatient (AMB) | payer OTHER, SELFPAY ==
[2025-04-20 15:56] VITALS: BP 110/62; PULSE 73; O2SAT 98; BMI 20.5
--- NOTE | 2025-04-20 15:56 | A.OFFPC_ITS ---
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: No Accompanied by: Self / Same As Patient Allergies No Known Allergies Allergy (Verified 04/20/25 16:37) Medication List - Last Reconciled 04/20/25 by Sandro Faustin MD benzonatate 200 mg (2 x 100 mg) PO BID calcium carbonate (Calcium 600) 600 mg PO DAILY cetirizine (Zyrtec) 10 mg PO DAILY cholecalciferol (vitamin D3) 50 mcg PO DAILY 90 days loperamide (Imodium A-D) 2 mg PO Q4H PRN dp-bil-AB-vit F-gajahl-sdkerct 200 mcg-15 mcg- 5 mg-1 mg (PreserVision AREDS 2 Plus Multivit) caps PO Tobacco use date assessed: 04/20/25 Dental Screening Dental Screen Date: 04/20/25 HPI Annual Physical HPI Details Patient comes in today for her annual physical examination States that she been experiencing on and off chest discomfort/pressure for the past year or so Notes that she would often experience the above symptoms in the morning and describes them as a sensation of tightness in her chest and that she has to take a few deep breaths and cough forcefully a few times to relieve her symptoms She does not think that these are related to activity or exertion and denies any associated dizziness when these symptoms occur She was previously sent for chest x-rays and EKG last year for further evaluation - both of these came back normal Adds that she often gets some painful leg cramps often around noon time when she is at work - states that she is on her feet all day when she is at work She also reports experiencing on and off headaches - states that she has trouble sleeping often at night and thinks that her headaches are most likely due to lack of sleep She denies any exertional dyspnea/increased SOB on exertion No nausea/vomiting, no abdominal pain No change in bowel habits noted She denies any acute urinary symptoms Needs her vitamin-D Rx refilled She had her follow up labs done last week - to discuss her results She was seen by GI for her precolonoscopy visit back in January 2025 and ended up getting a Cologuard test done instead, which came out negative States that she has an upcoming appointment for her gynecology exam in [place] and she is scheduled for her annual mammogram here at [facility] next month [facility] Medical History (Updated 04/20/25 @ 16:49 by Sandro Faustin MD) Abdominal pain, right lower quadrant Cough Vitamin D deficiency No pertinent past medical history Surgical History No pertinent past surgical history Family History Mother Diabetes Hypertension Social History Housing: Apartment Patient Tobacco Use Status: Former Tobacco user e-Cigarette/Vaping Use: Never Used service: No Current occupational status: employed Current occupational exposures/hazards: No Cognitive needs: No Hearing needs: No Vision needs: No Questionnaire PHQ-9 Over the last 2 weeks, how often have you been bothered by any of the following problems? 1. Little interest or pleasure in doing things: not at all 2. Feeling down, depressed, or hopeless: not at all 3. Trouble falling or staying asleep, or sleeping too much: not at all 4. Feeling tired or having little energy: not at all 5. Poor appetite or overeating: not at all 6. Feeling bad about yourself - or that you are a failure or have let yourself or your family down: not at all 7. Trouble concentrating on things, such as reading the newspaper or watching television: not at all 8. Moving or speaking so slowly that other people could have noticed. Or the opposite - being so fidgety or restless that you have been moving around a lot more than usual: not at all 9. Thoughts that you would be better off or of hurting yourself in some way: not at all Total score: 0 Depression Screening Interpretation: Negative Depression Screening Done: Yes 21533 - PHQ-9 Billing: Yes Source: Developed by Drs. Constantino Levine, Juana Fisher, Juwan Chappell and colleagues, with an educational baldo from [employer]. Thrive Questionnaire Date Thrive assessed: 04/20/25 I am a: Patient What is your living situation today?: I have a steady place to live Within the past 12 months, did the food you bought not last and you didn't have the money to get more?: Never true Within the past 12 months, did you worry whether your food would run out before you got money to buy more?: Never true Do you have trouble paying for medicines?: No Do you have trouble getting transportation to medical appointments?: No Do you have trouble paying your heating and electricity bill?: No Do you have trouble taking care of your child, family member or friend?: No Do you have trouble with day-to-day activities such as bathing, preparing meals, shopping, managing finances, etc.?: No Are you currently unemployed and looking for a job?: Yes Are you interested in more education?: No Please select the resources that you would like help with: None Currently or been in a relationship where the following occur: I choose not to answer THRIVE Score: 0 AUDIT C Alcohol Use Questionnaire (AUDIT-C) 1. How often do you have a drink containing alcohol?: Never 3. How often do you have six or more drinks on one occasion?: Never Total Score: 0 Score Reviewed/Action Taken: Yes NATHAN-7 AMB Questionnaire NATHAN-7 Date NATHAN - 7 assessed: 04/20/25 Feeling nervous, anxious, or on edge: 0 = Not at all Not being able to stop or control worryin = Not at all Worrying too much about different things: 0 = Not at all Trouble relaxin = Not at all Being so restless that it is hard to sit still: 0 = Not at all Becoming easily annoyed or irritable: 0 = Not at all Feeling afraid as if something awful might happen: 0 = Not at all Total NATHAN-7 score (0-4 normal; 5-9 mild; 10-14 moderate; 15-21 severe): 0 Source: Developed by Drs. Constantino Levine, Juana Fisher, Juwan Chappell and colleagues, with an educational baldo from [employer]. Review of Systems Const Denies chills, Reports difficulty sleeping, Denies fatigue, Denies fever(s), Reports headache(s) (on and off) and Denies malaise Eyes Denies blurry vision, Denies change in vision, Denies irritation and Denies itchy eyes ENT Denies dysphagia, Denies dizziness, Denies otalgia, Reports headache(s) (on and off), Denies nasal congestion, Denies neck pain, Denies odynophagia, Denies sinus pain and Denies sore throat Card Reports as per HPI, Denies chest pain (but (+) on and off chest discomfort/pressure - see HPI), Denies rapid heart rate, Denies irregular heart rhythm, Denies palpitations and Denies dyspnea Resp Denies chest congestion, Denies cough, Denies dyspnea and Denies wheezing GI Denies abdominal pain, Denies bloating, Denies constipation, Denies dysphagia, Denies heartburn, Denies diarrhea, Denies nausea, Denies odynophagia and Denies vomiting Denies hematuria, Denies urinary frequency, Denies dysuria, Denies urinary incontinence and Denies urinary urgency Musc Denies back pain, Denies arthralgias, Denies joint swelling, Reports muscle cramps (on and off in both legs - see HPI), Denies muscle weakness and Denies neck pain Skin/Breast Denies breast pain, Denies breast mass, Denies change in pigmentation, Denies lesions, Denies rash and Denies unusual bruising Neuro Denies dizziness, Reports headache(s) (on and off) and Denies paresthesias Psych Denies anxiety and Denies depression Endo Denies fatigue and Denies palpitations Donte/Lymph Denies easy bruising Aller/Immun Denies itchy eyes and Denies wheezing Physical exam (Primary Care) Vital Signs: Last Vital Signs Pulse 73 04/20/25 15:56 BP 110/62 04/20/25 15:56 Pulse Ox 98 04/20/25 15:56 Oxygen Delivery Method Room Air 04/20/25 15:56 BMI result Body Mass Index 20.5 Tobacco/Smoking Status: Tobacco use Status Tobacco use date assessed 04/20/25 04/20/25 16:03 Patient Tobacco Use Status Former Tobacco user 04/20/25 16:03 e-Cigarette/Vaping Use Never Used 04/20/25 16:03 PHQ-9: PHQ-9 Score PHQ-9: Total score 0 04/20/25 17:14 Depression Screening Interpretation: Negative Thrive Assessment: Date of Thrive Assessment Date Thrive assessed 04/20/25 04/20/25 16:03 Currently or been in a relationship where the following occur: I choose not to answer Const General: no acute distress, alert and awake Orientation/consciousness: patient oriented x3 HENMT Head: Yes normocephalic and Yes atraumatic Ears: external ears normal, TM's normal bilaterally and EAC's normal General nose exam: No nasal discharge present Face and sinus: Yes normal facial exam and Yes sinuses nontender Teeth and gingiva: dentition normal Throat: Yes posterior oropharynx normal and Yes tonsils normal (no TP congestion) Eyes Eyelids: Yes eyelids normal Conjunctivae: conjunctivae normal Pupils: Equal, round and reactive pupils present EOM: EOMs intact bilaterally Neck Neck: Yes no lymphadenopathy and Yes supple Thyroid: Thyroid normal Resp Auscultation: clear to auscultation bilaterally, no rales and no wheezes Cardio Rate: regular rate Rhythm: regular rhythm Heart sounds: no murmurs GI Palpation (GI): Soft to palpation, nontender and No hepatosplenomegaly present Auscultation: normal bowel sounds General: Yes no CVA tenderness Back/Spine/Pelvis Back: no CVA tenderness Thoracic/Lumbar Spine: thoracic and lumbar spine normal to inspection Skin Lesions: no lesions Rashes: no rashes Neuro General: patient oriented x3, moves all extremities, no focal motor deficits and CN's II-XI intact bilaterally Cranial nerves: Yes Equal, round and reactive pupils present Cognition (Neuro): normal cognition Gait exam (Neuro): Normal gait present Extrem General: Yes no clubbing, cyanosis or edema Results Reviewed Results Reviewed: Laboratory Tests 04/14/25 04/14/25 08:42 08:47 WBC 6.9 Hgb 14.2 Hct 42.4 Plt Count 387 D Sodium 139 Potassium 4.1 Creatinine 0.60 Estimated GFR > 60 Fasting Glucose 99 Hemoglobin A1c % 5.1 Calcium 8.9 AST 21 ALT 19 Triglycerides 46 Cholesterol 162 LDL Cholesterol, Calc 102 H HDL Cholesterol 51 25-OH Vitamin D Total 27.3 L TSH 1.09 Ur Specific [place] 1.015 Urine Protein Negative Urine Glucose (UA) Negative Urine Blood Negative Urine Nitrite Negative Ur Leukocyte Esterase Negative Coding Level of Care Code Est Pt Prev Care 40-64y(14196) Diagnoses Annual physical exam Z00.00 Chest discomfort R07.89 Vitamin D deficiency E55.9 Additional Codes PHQ-9 - 82084 - PHQ-9 Billing: Yes ([id number]) Assessment & Plan Assessment & Plan (1) Annual physical exam: Code(s): Z00.00 - Encounter for general adult medical examination without abnormal findings Category: Medical Plan: Results of her labs done last week reviewed and discussed with patient She was seen by GI for her precolonoscopy visit back in January 2025 and ended up getting a Cologuard test done instead, which came out negative - she would need to either have a repeat Cologuard testing or have a screening colonoscopy done in 3 years (2027) States that she has an upcoming appointment for her gynecology exam in [place] and she is scheduled for her annual mammogram here at [facility] next month (2) Chest discomfort: Code(s): R07.89 - Other chest pain Category: Medical Plan: Patient's EKG done last year (March 2024) revealed only (+) sinus bradycardia with no acute STT wave changes Chext x-rays done came back normal as well Will refer to cardiology for further evaluation and management of her more recent recurrent chest symptoms (3) Vitamin D deficiency: Code(s): E55.9 - Vitamin D deficiency, unspecified Category: Medical Plan: Continue Vitamin D3 2000 units QD - Rx refilled Plan To return in 1 year for her next annual physical examination although patient is advised that we may need to see her back sooner if her cardiology evaluation reveals any significant findings Have also reminded patient to again make sure she gets her follow up labs done just BEFORE she returns for her next appointment in 1 year Orders: Orders Comprehensive Dozier. Panel Fast 1 Year E78.00 - Pure hypercholesterolemia, unspecified, Z00.00 - Encounter for general adult medical examination without abnormal findings Lipid Panel 1 Year E78.00 - Pure hypercholesterolemia, unspecified, Z00.00 - Encounter for general adult medical examination without abnormal findings TSH reflex Free T4 1 Year E78.00 - Pure hypercholesterolemia, unspecified, Z00.00 - Encounter for general adult medical examination without abnormal findings UA CC w/rflx Micro + Cult 1 Year R30.0 - Dysuria, Z00.00 - Encounter for general adult medical examination without abnormal findings Complete Blood Count Auto Diff 1 Year D64.9 - Anemia, unspecified, Z00.00 - Encounter for general adult medical examination without abnormal findings Vitamin D 25-OH Total 1 Year E55.9 - Vitamin D deficiency, unspecified, Z00.00 - Encounter for general adult medical examination without abnormal findings Referrals Cardiology Referral R07.89 - Other chest pain Medications: Refilled cholecalciferol (vitamin D3) 50 mcg PO DAILY 90 caps 3RF 90 days E55.9 - Vitamin D deficiency, unspecified
--- OUTSIDE RECORDS SUMMARY | 2025-04-20 18:25 | XMS_ITS | Encounter Summary ---
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 Name Role Phone Pcp, Unknown Primary Care Provider Sandro Goldberg MD Primary Care Provider [phone] Pcp, Unknown Unavailable Unavailable Encounter Details Date Type Department Care Team (Late st Contact Info) Description 09/15/2022 Procedure Pass [facility], Ct Scan - [address] [address] Social History Tobacco Use Types Packs/Day Years Used Date Smoking Tobacco: Never Smokeless Tobacco: Never Alcohol Use Standard Drinks/Week Comments Not Currently 0 (1 standard drink = 0.6 oz pur e alcohol) Intimate Partner Violence Answer Date R ecorded Are you denied basic needs s uch as food, clothing, or medical care? No 09/15/2022 In the past 12 months have y ou been in a relationship with a person who hurts, threatens, or tries to control you? No 09/15/2022 Are you denied basic needs s uch as food, clothing, or medical care? No 09/15/2022 In the past 12 months have y ou been in a relationship with a person who hurts, threatens, or tries to control you? No 09/15/2022 Comments Unknown Sex and Gender Information Value Date Recorded Sex Assigned at Female 04/06/2024 12:53 PM EDT Legal Sex Female 2:43 PM EDT Gender Identity Female 04/06/2024 12:53 PM EDT Sexual Orientation Straight 04/06/2024 12 :53 PM EDT documented as of this encounter Functional Status * Calculated C-SSRS Risk Score (Lifetime/Recent) Answer Date of Assessment Author No Risk Indicated 09/15/2022 2:21 PM Rosi Anton, RN * [place] Suicide Severity Rating Scale (Screener/Recent Self-Report) Question Answer Date of Assessment Author 1. Wish to be (Past 1 Month) No 023 2:21 PM Rosi Londono, CARLO 2. Non-Specific Active Suici hoang Thoughts (Past 1 Month) No 09/15/2022 2:21 PM Rosi Londono, RN 6. Suicidal Behavior (Lifetime) No 2:21 PM Rosi Londono, CARLO documented as of this encounter Plan of Treatment Upcoming Encounters Date Type Department Care Team (Late st Contact Info) Description 05/25/2025 12:10 PM EST Office Visit [facility] [address] [place] [address] Evelyn Torres MD [address] [facility], [address] [place] [address] [email or web address] documented as of this encounter Visit Diagnoses Not on filedocumented in this encounter Additional Health Concerns Infection Onset Date Last Indicated Resolved Time CoV-Risk 09/15/2022 09/15/2022 09/26/2022 1:22 AM EDT documented as of this encounter Care Teams Pig Furnace Operator Relationship Specialty Start Date End Date Pcp, Unknown PCP - General 09/15/22 04/02/24 Sandro Faustin MD [address] [place] [address] [facility] [place] [address] PCP - General Internal Medicine 04/03/24 Pcp, Unknown 04/03/24 documented as of this encounter Additional Source Comments The information contained in this document represents components of the legal health record. It is not the complete legal health record.[facility]
--- OUTSIDE RECORDS SUMMARY | 2025-04-20 18:25 | XMS_ITS | Clinical Summary ---
Author Organization [facility] Address [address] [place] [id number] Phone Care Team Providers Care Wildlife Conservation Officer Name Role Phone Sandro Faustin MD Primary Care Provider [phone] Pcp, Unknown Unavailable Unavailable Allergies No known active allergies Medications meclizine (ANTIVERT) 25 mg tablet Take 1 tablet (25 mg total) by mouth 3 (three) times a day as needed for dizziness. 30 tablet 3 Active Additional Information Patient not taking.Reported on 05/12/2024 chlorhexidine (PERIDEX) 0.12 % solution PLEASE SEE ATTACHED FOR DETAILED DIRECTIONS 4 Active Family History Medical History Relation Comments Diabetes Mother Fibroids Mother Hypertension Mother Relation Status Comments Mother Social History Tobacco Use Types Packs/Day Years Used Date Smoking Tobacco: Never Smokeless Tobacco: Never Alcohol Use Standard Drinks/Week Comments Not Currently 0 (1 standard drink = 0.6 oz pur e alcohol) Education Answer Date Recorded Are you interested in more education? Not on miguel e 04/06/2024 Are you concerned about learning? Not on file 04/06/2024 No 04/06/2024 No 04/06/2024 Digital Access Answer Date Recorded No 04/06/2024 No 04/06/2024 Reliable internet access at home? Not on file 04/06/2024 Device with a working camera? Not on file Intimate Partner Violence Answer Date R ecorded [...] tries to control you? No 09/15/2022 Comments No Sex and Gender Information Value Date Recorded Sex Assigned at Female 04/06/2024 12:53 PM EDT Legal Sex Female 2:43 PM EDT Gender Identity Female 04/06/2024 12:53 PM EDT Sexual Orientation Straight 04/06/2024 12 :53 PM EDT Last Filed Vital Signs Vital Sign Reading Time Taken Comments Blood Pressure 108/70 05/12/2024 3:39 PM EST Pulse 64 09/15/2022 5:00 PM EST Temperature 37.2 C (99 F) 09/15/2022 2:23 PM EST Respiratory Rate 23 09/15/2022 5:00 PM EST Oxygen Saturation 99% 09/15/2022 5:00 PM EST Inhaled Oxygen Concentration - - Weight 54.5 kg (120 lb 3.2 oz) 05/12/2024 3:39 P M EST Height 165.1 cm (5' 5 ) 05/12/2024 3:39 PM EST Body Mass Index 20 05/12/2024 3:39 PM EST Plan of Treatment Upcoming Encounters Date Type Department Care Team (Late st Contact Info) Description 05/25/2025 12:10 PM EST Office Visit [facility] [address] [place] [address] Evelyn Torres MD 22 [facility], [address] [place] [address] [email or web address] Health Maintenance Due Date Last Done Comments Adult Td,Tdap Booster 1980 LIPID PANEL 1978 DEPRESSION SCREENING 1990 HEPATITIS C SCREENING 1996 HIV ONE-TIME SCREENING (18-6 5 YEARS) 1996 MAMMOGRAM 2018 COLOGUARD 2023 COLONOSCOPY 2023 COLORECTAL CANCER SCREENING 2023 FIT TEST 2023 FOBT 2023 SIGMOIDOSCOPY 2023 VIRTUAL COLONOSCOPY 2023 INFLUENZA VACCINE (#1) 2025 COVID-19 VACCINE (2 6 season) 2025 10/29/2021, 12/09/2020, 11/18/2020 PAP SMEAR 05/12/2027 05/12/2024 SMOKING STATUS SCREENING (On ce After 26 Yrs) Completed 05/12/2024 HEPATITIS A VACCINES Aged Out No long er eligible based on patient's age to complete this topic HIB VACCINES Aged Out No longer eligi ble based on patient's age to complete this topic MENINGOCOCCAL VACCINES (ACWY) Aged Out No longer eligible based on patient's age to complete this topic MENINGOCOCCAL VACCINES (B) Aged Out N o longer eligible based on patient's age to complete this topic PNEUMOCOCCAL VACCINES (0-49 years) Aged Out No longer eligible b ased on patient's age to complete this topic Medical Devices Not on file Procedures Procedure Name Priority Date/Time Associated Diagnosis Comments PAP TEST Routine 05/12/2024 12:00 AM EST from Last 3 Months or Most Recently Relevant to Health Maintenance Results * Pap Test (05/12/2024 12:00 AM EST) Report [address] [address] Braille Translator: Narendra Hooks MD [facility] Cytology Report FINAL DIAGNOSIS A. PAP SMEAR (THIN PREP) CE: SPECIMEN ADEQUACY: Satisfactory for evaluation; transformation zone present. INTERPRETATION: NEGATIVE FOR INTRAEPITHELIAL LESION OR MALIGNANCY. Endometrial cells are present in a woman 45 years of age or older. Endometrial cells after age 45, particularly out of phase or after menopause, may be associated with benign endometrium, hormonal alterations, and, less commonly, endometrial/uterine abnormalities. Clinical correlation is recommended. This specimen was analyzed by the automated ThinPrep Imaging System ([employer] and manually rescreened by a in house cra and/or pathologist. Due to blood, the specimen was reprocessed with 10% Glacial Acetic Acid to increase cellularity. Electronically Signed Out By: MARCO Mcintosh MD([facility]) By his/her signature above, the pathologist listed as making the Final Diagnosis certifies that he/she has personally reviewed this case and confirmed or corrected the diagnosis. The Pap test is a screening test primarily for squamous cancers and precursors and has associated false-negative and false-positive results. New technologies such as liquid-based preparations may decrease but will not eliminate all false-negative results. Regular sampling and follow-up of unexplained clinical signs and symptoms are recommended to minimize false negative results. PROCEDURES/ADDENDA HPV Testing (Requested) Ordered Date: 05/13/2024 A. PAP SMEAR (THIN PREP) CE: High-risk HPV Panel w/ extended genotyping NEG HPV 16-NEG HPV 18-NEG HPV 45-NEG HPV 33/58-NEG HPV 31-NEG HPV 56/59/66-NEG HPV 51-NEG HPV 52-NEG HPV 35/39/68-NEG Performed by real-time polymerase chain reaction (PCR) at [facility], [address] [place] [address] using the FDA-approved BD Onclarity9 HPV Assay with extended genotyping. Uses of the assay in scenarios other than those approved by the FDA should be considered off-label use. The accuracy and precision of this test for all other off-label specimen sources has been verified in the Cytopathology Laboratory of the [facility] and has not been cleared or approved by the U.S. Food and Drug Administration. Clinical correlation is advised. The assay assesses the E6/E7 DNA target and utilizes human beta globin as an internal control. Cytology and HPV testing are screening assays and should not be used as the sole means of detecting cancer. False-positives and false-negatives can occur. Electronically Signed Out By: JACKELINE Curtis ([facility]) MAGDALENA on 05/15/2024 14:01 CLINICAL HISTORY Date of Last Menstrual Period: 05-09-2024 Other Clinical Conditions: Screening Pap SPECIMEN SOURCE A: PAP SMEAR (THIN PREP) CE Patient Name: CORI LIANG : 1980 (Age: 43) Sex: F Institution: [facility] Location: [facility] Date of Collection: 05/12/2024 Date of Reported: 05/19/2024 16:24 Results to: Evelyn Rincon [facility] Final Diagnosis A. PAP SMEAR (THIN PREP) CE: SPECIMEN ADEQUACY: Satisfactory for evaluation; transformation zone present. INTERPRETATION: NEGATIVE FOR INTRAEPITHELIAL LESION OR MALIGNANCY. Endometrial cells are present in a woman 45 years of age or older. Endometrial cells after age 45, particularly out of phase or after menopause, may be associated with benign endometrium, hormonal alterations, and, less commonly, endometrial/uterine abnormalities. Clinical correlation is recommended. This specimen was analyzed by the automated ThinPrep Imaging System ([employer].) and manually rescreened by a in house cra and/or pathologist. Due to blood, the specimen was reprocessed with 10% Glacial Acetic Acid to increase cellularity. [facility] Results\Inte rpretation A. PAP SMEAR (THIN PREP) CE: High-risk HPV Panel w/ extended genotyping NEG HPV 16-NEG HPV 18-NEG HPV 45-NEG HPV 33/58-NEG HPV 31-NEG HPV 56/59/66-NEG HPV 51-NEG HPV 52-NEG HPV 35/39/68-NEG Performed by real-time polymerase chain reaction (PCR) at [facility], [address] [place] [address] using the FDA-approved [employer] Onclarity HPV Assay with extended genotyping. Uses of the assay in scenarios other than those approved by the FDA should be considered off-label use. The accuracy and precision of this test for all other off-label specimen sources has been verified in the Cytopathology Laboratory of the [facility] and has not been cleared or approved by the U.S. Food and Drug Administration. Clinical correlation is advised. The assay assesses the E6/E7 DNA target and utilizes human beta globin as an internal control. Cytology and HPV testing are screening assays and should not be used as the sole means of detecting cancer. False-positives and false-negatives can occur. [facility] Conversion Type 05/12/2024 10:12 AM EST Evelyn Torres MD CYTOLOGY ORDER CAYDEN Edited Result - Final [facility] [address] [place] [address] from Last 3 Months or Most Recently Relevant to Health Maintenance Insurance [employer] [facility] [place] [address] NON [facility] PCP [facility] [employer] LIMITED HEALTH SAFETY NET FULL Member Subscriber Plan / Payer (Ef fective 2022-Present) Name:Annabella Liangbrian Relation to Subscriber:Self Name:Annabella Liangbrian Payer ID:Not on file Group ID:Not on file Type:Medicaid Address: [address] NON [facility] PCP [facility] HEALTH SAFET[facility] NET FULL WELLSENSE NON NSPG PCP [facility] [address] [facility] FULL [facility] NON NSPG PCP S[facility] [employer] LIMITED [facility] SAFETY NET FULL Member Subscriber Plan / Payer (Ef fective 2022-Present) Name:Cori Liang Relation to Subscriber:Self Name:Cori Liang Payer ID:Not on file Group ID:Not on file Type:Medicaid Address: [address] NON [facility] PCP [facility] SAFETY NET FULL [facility] [employer] [facility] NET FULL [facility] SAFETY NET FULL [facility] SAFETY NET FULL [facility] SAFETY NET FULL [facility] SAFETY NET FULL [facility] NET FULL Care Teams Wildlife Conservation Officer Relationship Specialty Start Date End Date Sandro Faustin MD [address] [place] [address] [place] [address] PCP - General Internal Medicine 04/03/24 Pcp, Unknown 04/03/24 Additional Source Comments The information contained in this document represents components of the legal health record. It is not the complete legal health record.[facility]
== END 2025-04-20 16:53 | disposition home or self-care (01) ==
LOC: HO.HMCH 15:52
PROVIDERS: PCP Internal Medicine; Visit Provider Internal Medicine
DX: Z00.00 Encounter for general adult medical examination without abnormal findings (principal); R07.89 Other chest pain; E55.9 Vitamin D deficiency, unspecified

== ENCOUNTER → 2025-04-20 15:51 | Outpatient (BNVA) | payer OTHER, SELFPAY | PROVIDERS: PCP Internal Medicine; Visit Provider Internal Medicine | DX: Z00.00 Encounter for general adult medical examination without abnormal findings (principal); R07.89 Other chest pain; R51.9 Headache, unspecified; E55.9 Vitamin D deficiency, unspecified; E78.00 Pure hypercholesterolemia, unspecified; R30.0 Dysuria; D64.9 Anemia, unspecified | CPT/HCPCS: 96127; 99396 ==

== ENCOUNTER 2025-05-18 10:41 | Outpatient (REF) | payer OTHER, SELFPAY ==
--- OUTSIDE RECORDS SUMMARY | 2025-05-18 12:20 | XMS_ITS | Clinical Summary ---
Author Organization [facility] Address [address] [place] [address] Phone Care Team Providers Care Architect Name Role Phone Sandro Faustin MD Primary Care Provider [phone] Pcp, Unknown Unavailable Unavailable Allergies No known [...] Care Team (Late st Contact Info) Description 06/02/2025 9:10 AM EST Office Visit [facility] [address] [place] [address] [place] [address] Evelyn Torres MD 22 [facility], [address] [place] [address] [email or web address] Health Maintenance Due Date Last Done Comments Adult Td,Tdap Booster 1980 LIPID PANEL 1978 DEPRESSION SCREENING 1990 HEPATITIS C SCREENING 1996 HIV ONE-TIME SCREENING (18-6 5 YEARS) 1996 MAMMOGRAM 2018 COLOGUARD 2023 COLONOSCOPY 2023 COLORECTAL CANCER SCREENING 2023 FIT TEST 2023 FOBT 2023 SIGMOIDOSCOPY 2023 VIRTUAL COLONOSCOPY 2023 INFLUENZA VACCINE (#1) 2025 COVID-19 VACCINE (2024-2 6 season) 2025 10/29/2021, 12/09/2020, 11/18/2020 PAP SMEAR 05/12/2027 05/12/2024 SMOKING STATUS SCREENING (On ce After 26 Yrs) Completed 05/12/2024 HEPATITIS A VACCINES Aged Out No long er eligible based on patient's age to complete this topic HIB VACCINES Aged Out No longer eligi ble based on patient's age to complete this topic IPV VACCINES Aged Out No longer eligi ble [...] Pap Test (05/12/2024 12:00 AM EST) Report [address] [address] Title I Math Tutor: Narendra Hooks MD FISH HATCHERY SPECIALIST Cytology Report FINAL DIAGNOSIS A. PAP SMEAR [...] analyzed by the automated ThinPrep Imaging System ([employer] and manually rescreened by a truck body builder apprentice and/or pathologist. Due to blood, the specimen was reprocessed with 10% Glacial Acetic Acid to increase cellularity. Electronically Signed Out By: MARCO Mcintosh MD([facility]) By his/her signature above, the pathologist [...] by real-time polymerase chain reaction (PCR) at [facility], [address] [place] [address] using the FDA-approved BD Onclarity9 HPV Assay with extended genotyping. Uses of the assay in scenarios other than those approved by the FDA should be considered off-label use. The accuracy and precision of this test for all other off-label specimen sources has been verified in the Cytopathology Laboratory of the [facility] and has not been cleared or approved by the U.S. Food and Drug Administration. Clinical correlation is advised. The assay assesses the E6/E7 DNA target and utilizes human beta globin as an internal control. Cytology and HPV testing are screening assays and should not be used as the sole means of detecting cancer. False-positives and false-negatives can occur. CLINICAL HISTORY Date of Last Menstrual Period: 05-09-2024 Other Clinical Conditions: Screening Pap SPECIMEN SOURCE A: PAP SMEAR (THIN PREP) CE Patient Name: CORI LIANG : 1980 (Age: 43) Sex: F Institution: [facility] Location: [facility] Date of Collection: 05/12/2024 Date of Reported: 05/19/2024 16:24 Results to: Evelyn Doei-Q [facility] Final Diagnosis A. PAP SMEAR (THIN [...] analyzed by the automated ThinPrep Imaging System ([employer] and manually rescreened by a truck body builder apprentice and/or pathologist. Due to blood, the specimen was reprocessed with 10% Glacial Acetic Acid to increase cellularity. [facility] Results\Inte rpretation A. PAP SMEAR (THIN PREP) CE: High-risk HPV Panel w/ extended genotyping NEG HPV 16-NEG HPV 18-NEG HPV 45-NEG HPV 33/58-NEG HPV 31-NEG HPV 56/59/66-NEG HPV 51-NEG HPV 52-NEG HPV 35/39/68-NEG Performed by real-time polymerase chain reaction (PCR) at [address] using the FDA-approved BD Onclarity HPV Assay with extended genotyping. Uses of the assay in scenarios other than those approved by the FDA should be considered off-label use. The accuracy and precision of this test for all other off-label specimen sources has been verified in the Cytopathology Laboratory of the [facility] and has not been cleared or approved by the U.S. Food and Drug Administration. Clinical correlation is advised. The assay assesses the E6/E7 DNA target and utilizes human beta globin as an internal control. Cytology and HPV testing are screening assays and should not be used as the sole means of detecting cancer. False-positives and false-negatives can occur. [facility] Conversion Type (Conversion Source) 05/12/2024 05/13/2024 10:12 AM EST Evelyn Torres MD CYTOLOGY ORDER CAYDEN Edited Result - Final [address] [address] from Last 3 Months or Most Recently Relevant to Health Maintenance Insurance [employer] [facility] FULL NON NSPG PCP [facility] [employer] [facility] SAFETY [place] [address] [place] [address] PCP [facility] NET FULL WELLSENSE NON NSPG PCP [facility] FULL WELLSENSE NON NSPG PCP S[facility] CONNECTORCARE [employer] LIMITED [facility] SAFETY NET FULL PCP [facility] [place] [facility] SAFETY NET FULL [facility] NON NSPG PCP S[facility] [place] [employer] [facility] NET FULL [employer] LIMITED HEALTH SAFETY NET FULL [employer] LIMITED [facility] SAFETY NET FULL [facility]ALTH SAFETY NET FULL [employer] LIMITED [facility] SAFETY NET FULL [employer] LIMITED [facility] NET FULL Care Teams Architect Relationship Specialty Start Date End Date Sandro Faustin MD [address] [place] [address] [place] [address] PCP - General Internal Medicine 04/03/24 Pcp, Unknown 04/03/24 Additional Source Comments The information contained in this document represents components of the legal health record. It is not the complete legal health record.[facility]
--- OUTSIDE RECORDS SUMMARY | 2025-05-18 12:20 | XMS_ITS | Encounter Summary ---
Author Organization [facility] Address [address] [place] [address] Phone Care Team Providers Care Sole Blacker Name Role Phone Pcp, Unknown Primary Care Provider Sandro Goldberg MD Primary Care Provider [phone] Pcp, Unknown Unavailable Unavailable Encounter Details Date Type Department Care Team (Late st Contact Info) Description 09/15/2022 Procedure Pass [facility], Ct Scan - [address] [address] Social History Tobacco Use Types Packs/Day Years [...] 09/15/2022 2:21 PM Rosi Anton, RN * [place] Suicide Severity Rating Scale (Screener/Recent Self-Report) Question [...] Visit [facility] [address] [place] [address] Evelyn Torres MD 22 [facility], [address] [place] [address] [email or web address] documented as of this encounter Visit Diagnoses Not on filedocumented in this encounter Additional Health Concerns Infection Onset Date Last Indicated Resolved Time CoV-Risk 09/15/2022 09/15/2022 09/26/2022 1:22 AM EDT documented as of this encounter Care Teams Sole Blacker Relationship Specialty Start Date End Date Pcp, Unknown PCP - General 09/15/22 04/02/24 Sandro Faustin MD [address] [place] [address] [facility] [place] [address] PCP - General Internal Medicine 04/03/24 Pcp, Unknown 04/03/24 documented as of this encounter Additional Source Comments The information contained in this document represents components of the legal health record. It is not the complete legal health record.[facility]
--- OUTSIDE RECORDS SUMMARY | 2025-05-18 12:20 | XMS_ITS | Clinical Summary ---
Author Organization [facility] Address [address] [place] [address] [address] [place] [address] Care Team Providers Care Manager Proposal Name Role Phone Unavailable Primary Care Provider Unavailabl e Allergies No known active allergies Medications No known medications Active Problems No known active problems Social History Tobacco Use Types Packs/Day Years [...] Mass Index - - Plan of Treatment Upcoming Encounters Date Type Department Care Team (Late st Contact Info) Description 05/26/2025 2:45 PM EST Office Visit [facility] [address] [place] [address] Duke Dickey, JAMES [address] [place] [address] 07/28/2025 9:30 AM EST Office Visit [facility] [address] [place] [address] Caro Carias [address] [place] [address] Health Maintenance Due Date Last Done Comments [...] 2008 HPV/Cotest 2008 Mammogram 2018 COVID-19 Vaccine ( - 2024-2 6 season) 2025 10/29/2021, 12/09/2020, 11/18/2020 Influenza Vaccine (#1) 2025 [...] Procedure Name Priority Date/Time Associated Diagnosis Comments PROPHYLAXIS - ADULT Routine 12/11/2024 9 :00 AM EDT Gingivitis Gingival bleeding PERIODIC ORAL EVALUATION - ESTABLISHED PATIENT Routine 12/11/2024 9:00 AM EDT INTRAORAL - COMPLETE SERIES OF RADIOGRAPHIC IMAGES Routine 05/19/2024 10:00 AM EST from Last 3 Months or Most Recently Relevant to Health Maintenance Insurance [facility] MEDICAID LIMITED ADULT DENTAL - [facility] FULL (MEDICAID)
== END 2025-05-18 10:42 | disposition home or self-care (01) ==
LOC: HO.MAMMO 10:41
PROVIDERS: PCP Internal Medicine; Visit Provider Internal Medicine
DX: Z12.31 Encounter for screening mammogram for malignant neoplasm of breast (principal)
CPT/HCPCS: 77063; 77067

== ENCOUNTER → 2025-05-18 11:15 | Outpatient (BNV) | payer OTHER, SELFPAY | PROVIDERS: PCP Internal Medicine; Visit Provider Internal Medicine | DX: Z12.31 Encounter for screening mammogram for malignant neoplasm of breast (principal) | CPT/HCPCS: 77063; 77067 ==